=== PATIENT | female | born 2000 | race Caucasian/White ===

== ENCOUNTER 2018-02-12 11:30 | Outpatient (CLI) | payer MEDICAID ==
[2018-02-12] MEDS ORDERED: metroNIDAZOLE-NS PMX 500 MG in SALINE 1 100ML.BAG IVPB STA (12:22)
[2018-02-12] MEDS: LACTATED RINGERS 1,000 ML IV SCH ×2 (12:25→15:18)
[2018-02-12 12:39] VITALS: BP 139/83; PULSE 96; RESP 16; TEMP 98.3
[2018-02-12 12:46] LABS: Basophils % (A) 0 %; Eosinophils # (A) 0.1 k/uL (0-0.7); Eosinophils % (A) 1 %; HGB 11.1 gm/dL (11.4-16.0); Lymphocytes # (A) 0.6 k/uL (1.0-4.8); Lymphocytes % (A) 9 %; MCH 26.5 pg (25.0-35.0); MCHC 32.7 g/dL (31.0-37.0); MCV 81.1 fL (80.0-100.0); Mean Platelet Volume 7.9; Monocytes # (A) 0.3 k/uL (0-1.0); Monocytes % (A) 5 %; Neutrophils # (A) 5.5 k/uL (1.3-7.7); Neutrophils % (A) 85 %; Platelet Count 185 k/uL (150-450); RBC 4.19 m/uL (3.80-5.40); RDW 14.1 % (11.5-15.5); WBC 6.6 k/uL (4.0-11.0)
--- NOTE | 2018-02-12 14:59 | P.MSEPDOC ---
Presenting Problems - Arrival Data Date of Arrival on Unit: 02/12/18 Time of Arrival on Unit: 11:30 Mode of Transport: Ambulatory - Complaint OB-Reason for Admission/Chief Complaint: Acute Nausea/Vomiting, Dizziness, Other Comment: nausea, dizziness, diarrhea x2 weeks Medical History - Information : 1 Para: 0 Term: 0 : 0 Abortions: Spontaneous or Elective: 0 Number of Living Children: 0 - Gestational Age Gestational Age by ZIGGY (wks/days): 20 Weeks and 5 Days Review of Systems - Review of Systems Constitutional: Fatigue Breast: No problems ENT: No problems Cardiovascular: No problems Respiratory: No problems Gastrointestinal: Diarrhea Genitourinary: No problems Musculoskeletal: No problems Neurological: Dizziness Skin: No problems Comment: diarrhea x 2 weeks since taking Azythromycin, nausea, stomach pain, dizzy Vital Signs - Temperature Temperature: 98.3 F Temperature Source: Temporal Artery Scan - Pulse Right Brachial Pulse Rate: 96 Pulse Assessment Method: Automatic Cuff - Respirations Respiratory Rate: 16 Oxygen Delivery Method: Room Air O2 Sat by Pulse Oximetry: 99 - Blood Pressure Right Arm Blood Pressure: 139/83 Blood Pressure Mean: 101 Blood Pressure Source: Automatic Cuff Medical Screen Scoring (Pre) - Cervical Exam Dilation: Exam Deferred Effacement: Exam Deferred Membranes: Intact - Uterine Contractions Frequency: N/A Duration: N/A Intensity: N/A - Maternal Vital Signs Maternal Temperature: N/A Maternal Blood Pressure: N/A Signs of Preeclampsia: N/A - Pain Assessment Pain Location and Character: Abdomen Pain Scale Used: Numeric (1 - 10) Pain Intensity: 8 Pain Description: *Acute, Aching Pain Frequency: Intermittent Pain Duration: 10 Pain Duration Units: Days Pain Behavior: None Exhibited Pain Aggravating Factors: None Non-Pharmacological Interventions: Darkened Room, Reduce Environmental Stimuli - Assessment Baseline FHR: 146 Heart Rate - NICHD Category: Category I (Normal) = 0 Position: N/A Station: N/A - Total Score Total Score (Pre): 0 - Level of Risk Level of Risk: Low (0-5) Physician Notification (Pre) - Physician Notified Physician Notified Date: 02/12/18 Physician Notified Time: 12:01 Spoke With: August New Order Received: Yes - Notification Comment Comment: cbc, IV fluids, Flagyl IV I agree with the RN Medical Screening Exam: Yes Risk & Benefit of care provided described in d/c instruction: Yes Diagnosis: CHOLERA DUE TO VIBRIO CHOLERAE 01, BIOVAR CHOLERAE
== END 2018-02-12 13:57 | disposition home or self-care (01) ==
LOC: FBPOP 11:30
PROVIDERS: ATTEND Obstetrics & Gynecology Obstetrics
DX: O98.812 Other maternal infectious and parasitic diseases complicating pregnancy, second trimester (principal); A00.0 Cholera due to Vibrio cholerae 01, biovar cholerae; Z3A.20 20 weeks gestation of pregnancy
CPT/HCPCS: 85025; 96361; 96365; 99214

== ENCOUNTER 2018-03-06 20:01 | Observation (INO) | payer MEDICAID, OTHER ==
[2018-03-06] MEDS ORDERED: LABETALOL 200 MG TAB PO STA (20:37)
[2018-03-06 20:50] LABS: Appearance,Urine Clear (Clear); Bilirubin,Urine Negative (Negative); Blood,Urine Negative (Negative); Color,Urine Yellow; Glucose,Urine (UA) Negative (Negative); Ketones,Urine Negative (Negative); Leukocyte Esterase,Urine Negative (Negative); Nitrite,Urine Negative (Negative); Protein,Urine Negative (Negative); Specific Gravity,Urine 1.016 (1.001-1.035); Urobilinogen,Urine <2.0 mg/dL (<2.0)
[2018-03-06 21:19] LABS: Basophils % (A) 0 %; Eosinophils # (A) 0.1 k/uL (0-0.7); Eosinophils % (A) 1 %; HCT 33.8 % (34.0-46.0); HGB 11.1 gm/dL (11.4-16.0); Lymphocytes # (A) 1.3 k/uL (1.0-4.8); Lymphocytes % (A) 17 %; MCH 26.8 pg (25.0-35.0); MCHC 32.7 g/dL (31.0-37.0); MCV 82.2 fL (80.0-100.0); Mean Platelet Volume 7.7; Monocytes # (A) 0.4 k/uL (0-1.0); Monocytes % (A) 6 %; Neutrophils # (A) 5.6 k/uL (1.3-7.7); Neutrophils % (A) 75 %; Platelet Count 201 k/uL (150-450); RBC 4.12 m/uL (3.80-5.40); WBC 7.5 k/uL (4.0-11.0)
[2018-03-06 21:30] LABS: ALT 21 U/L (9-52); AST 19 U/L (14-36); Blood Urea Nitrogen 11 mg/dL (7-17); LDH 344 U/L (313-618)
[2018-03-06 21:52] LABS: Amphetamine Screen,Urine Not Detected (NotDetected); Barbiturate Screen,Urine Not Detected (NotDetected); Benzodiazepines Screen,Urine Not Detected (NotDetected); Cocaine Screen,Urine Not Detected (NotDetected); Methadone Screen, Urine Not Detected (NotDetected); Opiate Screen,Urine Not Detected (NotDetected); Oxycodone Screen, Urine Not Detected (NotDetected); Phencyclidine Screen,Urine Not Detected (NotDetected); Tricyclic Antidepressant,Urine Not Detected (NotDetected); Urn Cannabinoid Scrn Detected (NotDetected)
[2018-03-06] MEDS ORDERED: ACETAMINOPHEN TAB 325 MG TAB PO PRN (22:11)
[2018-03-06] MEDS ORDERED: hydrALAZINE HCL 20 MG/ML 1 ML VIAL IVP PRN (22:30)
[2018-03-07 00:05] VITALS: BMI 22.1
[2018-03-07] MEDS: LABETALOL 200 MG TAB PO SCH ×3 (06:36→20:53)
[2018-03-07 08:22] LABS: ALT 17 U/L (9-52); AST 14 U/L (14-36); Blood Urea Nitrogen 10 mg/dL (7-17); LDH 252 U/L (313-618); Uric Acid 2.2 mg/dL (3.7-7.4)
[2018-03-07 08:33] LABS: Basophils % (A) 0 %; Eosinophils # (A) 0.1 k/uL (0-0.7); Eosinophils % (A) 2 %; HCT 28.7 % (34.0-46.0); Lymphocytes # (A) 1.5 k/uL (1.0-4.8); Lymphocytes % (A) 25 %; MCH 26.9 pg (25.0-35.0); MCV 81.7 fL (80.0-100.0); Mean Platelet Volume 7.2; Monocytes # (A) 0.3 k/uL (0-1.0); Monocytes % (A) 6 %; Neutrophils % (A) 66 %; Platelet Count 201 k/uL (150-450); RBC 3.52 m/uL (3.80-5.40); RDW 13.9 % (11.5-15.5)
[2018-03-07 08:50] LABS: HGB 9.5 gm/dL (11.4-16.0)
--- NOTE | 2018-03-07 09:51 | P.HPOB ---
History of Present Illness H&P Date: 03/07/18 Chief Complaint: Abdominal cramping This is a 17-year-old 1 young woman who is approximately 23 weeks gestation. She presented to labor and delivery triage with vague complaints of abdominal cramping. She was ruled out for labor however was noted to have significantly elevated blood pressures in the 170s over 80s. She had no prior history of hypertension and was therefore admitted for further blood pressure monitoring and assessment. She denies vaginal bleeding, abdominal pain, leakage of fluids, headaches, visual changes, heartburn. She does have good movement. Her obstetric history is significant for marijuana use earlier in the however no other drug or alcohol history. She does note that her blood pressures were somewhat elevated on her last 2 visits in the office but had never been as high as they are upon presentation. Review of Systems Constitutional: Denies chills, Denies chronic headaches, Denies fatigue, Denies fever Cardiovascular: Denies chest pain, Denies rapid heart beat, Denies shortness of breath Respiratory: Denies cough, Denies dyspnea Gastrointestinal: Denies abdominal pain, Denies BRBPR, Denies change in bowel habits, Denies diarrhea Genitourinary: Denies abnormal vaginal bleeding, Denies dysuria, Denies vaginal discharge Musculoskeletal: Denies low back pain Integumentary: Denies rash Neurological: Denies headaches, Denies visual changes Psychiatric: Denies confusion Hematologic/Lymphatic: Denies easy bleeding, Denies easy bruising Past Medical History Past Medical History: Asthma History of Any Multi-Drug Resistant Organisms: None Reported Past Surgical History: No Surgical Hx Reported, Tonsillectomy Past Anesthesia/Blood Transfusion Reactions: No Reported Reaction Past Psychological History: ADD/ADHD, Anxiety Smoking Status: Never smoker Past Alcohol Use History: None Reported Past Drug Use History: Marijuana - Past Family History Father Family Medical History: No Reported History Medications and Allergies Home Medications Medication Instructions Recorded Confirmed Type Albuterol Sulfate [Proair Hfa] 2 puff INHALATION RT-Q6H PRN 01/29/15 03/06/18 History Pnv No.95/Ferrous Fum/Folic AC 1 tab PO HS 02/12/18 03/06/18 History [ Multivitamin Tablet] Allergies Allergy/AdvReac Type Severity Reaction Status Date / Time No Known Allergies Allergy Verified 03/06/18 20:04 Exam - Vital Signs Vital signs: Vital Signs Temp Pulse Resp BP 03/06/18 20:04 98.2 F 101 H 16 179/74 Intake and Output 03/06/18 03/07/18 03/07/18 22:59 06:59 14:59 Intake Total 300 Balance 300 Intake: Oral 300 Other: # Voids 2 Weight 58.513 kg Upon admission this is a pleasant, young, visibly gravid female. HEENT exam is unremarkable. The lungs are clear and her breathing is unlabored. Heart is a regular rate and rhythm. Abdomen is gravid, soft and nontender. Cervix is closed, thick and high. She has no lower extremity swelling and has 2+ DTRs. Results Result Diagrams: 03/07/18 07:39 03/07/18 07:39 Abnormal Lab Results - Last 24 Hours (Table) 03/06/18 03/06/18 03/06/18 Range/Units 20:44 21:09 21:09 RBC (3.80-5.40) m/uL Hgb 11.1 L (11.4-16.0) gm/dL Hct 33.8 L (34.0-46.0) % Uric Acid 2.0 L (3.7-7.4) mg/dL Lactate Dehydrogenase (313-618) U/L U Marijuana (THC) Screen Detected H (NotDetected) 03/07/18 03/07/18 Range/Units 07:39 07:39 RBC 3.52 L (3.80-5.40) m/uL Hgb 9.5 L D (11.4-16.0) gm/dL Hct 28.7 L (34.0-46.0) % Uric Acid 2.2 L (3.7-7.4) mg/dL Lactate Dehydrogenase 252 L (313-618) U/L U Marijuana (THC) Screen (NotDetected) Assessment and Plan (1) 23 weeks gestation of Current Visit: Yes Status: Acute Code(s): Z3A.23 - 23 WEEKS GESTATION OF SNOMED Code(s): 50714805 (2) Hypertension affecting in second trimester Narrative/Plan: Initial laboratory data was within normal limits with no evidence of preeclampsia by lab values. She did receive an initial dose of 200 mg of labetalol and her blood pressures have remained much slower since that time. She has no other clinical signs of developing preeclampsia. Her drug screen was positive for marijuana only. At this time we will continue hospital observation and serial blood pressures until her 24-hour urine protein is completed. If that is normal she will likely be discharged with close follow- up in the outpatient setting. Current Visit: Yes Status: Acute Code(s): O16.2 - UNSPECIFIED MATERNAL HYPERTENSION, SECOND TRIMESTER SNOMED Code(s): 958388878
[2018-03-07 13:21] VITALS: RESP 20
[2018-03-07 14:17] VITALS: TEMP 97.9
[2018-03-07 18:44] VITALS: BP 107/53; PULSE 83
[2018-03-07 21:38] LABS: Collection Time,Urine 24 hrs; Total Volume 24 Hour,Urine 1575 mls (800-1800)
[2018-03-07 22:27] LABS: Total Protein 24 Hour,Urine 158 mg/24hr (42.0-225.0)
== END 2018-03-07 23:30 | disposition home or self-care (01) ==
LOC: FBPOP 20:01 → 4FBP 22:06
PROVIDERS: ADMIT Obstetrics & Gynecology; ATTEND Obstetrics & Gynecology Obstetrics
DX: O16.2 Unspecified maternal hypertension, second trimester (principal); O99.342 Other mental disorders complicating pregnancy, second trimester; F12.90 Cannabis use, unspecified, uncomplicated; F90.9 Attention-deficit hyperactivity disorder, unspecified type; F41.9 Anxiety disorder, unspecified; O99.512 Diseases of the respiratory system complicating pregnancy, second trimester; J45.909 Unspecified asthma, uncomplicated; Z3A.23 23 weeks gestation of pregnancy
CPT/HCPCS: 81050; 82565 ×2; 83615 ×2; 84450 ×2; 84460 ×2; 84520 ×2; 84550 ×2; 85025 ×2; 81003; 84156; 80306; G0463; G0378 ×2; 99215

== ENCOUNTER 2018-06-18 16:03 | Inpatient (IN) | payer OTHER ==
[2018-06-18 16:58] LABS: Basophils % (A) 0 %; Eosinophils # (A) 0.1 k/uL (0-0.7); Eosinophils % (A) 1 %; HCT 35.4 % (34.0-46.0); HGB 11.7 gm/dL (11.4-16.0); Lymphocytes # (A) 1.2 k/uL (1.0-4.8); Lymphocytes % (A) 16 %; MCH 26.8 pg (25.0-35.0); MCV 81.2 fL (80.0-100.0); Mean Platelet Volume 8.7; Monocytes # (A) 0.4 k/uL (0-1.0); Monocytes % (A) 5 %; Neutrophils # (A) 6.1 k/uL (1.3-7.7); Neutrophils % (A) 77 %; Platelet Count 184 k/uL (150-450); RBC 4.37 m/uL (3.80-5.40); RDW 14.6 % (11.5-15.5); WBC 7.9 k/uL (4.0-11.0)
[2018-06-18 17:00] LABS: ALT 22 U/L (9-52); AST 20 U/L (14-36); Blood Urea Nitrogen 9 mg/dL (7-17); LDH 456 U/L (313-618); Uric Acid 2.9 mg/dL (3.7-7.4)
[2018-06-18] MEDS ORDERED: DINOPROSTONE 10 MG INSERT.ER VAGINAL ONE (17:06)
[2018-06-18] MEDS ORDERED: BUTORPHANOL 1 MG/ML 1 ML VIAL IV PRN ×2 (17:06→23:33)
[2018-06-18] MEDS ORDERED: LACTATED RINGERS 1,000 ML IV SCH (17:15)
[2018-06-18] MEDS ORDERED: TERBUTALINE 1 MG/ML VIAL SQ PRN (17:25)
[2018-06-18] MEDS ORDERED: LIDOCAINE 1% (PF) 10 MG/ML (30 ML SDV) SQ PRN (17:25)
[2018-06-18] MEDS ORDERED: OXYTOCIN 10 UNIT/ML 1 ML VIAL IM PRN (17:25)
[2018-06-18] MEDS ORDERED: CARBOPROST TROMETHAMINE 250 MCG/ML 1 ML AMP IM PRN (17:25)
[2018-06-18] MEDS ORDERED: METHYLERGONOVINE 0.2 MG/ML 1 ML AMP IM PRN (17:25)
[2018-06-18] MEDS: OXYTOCIN 20 UNITS/1000 ML NS 1,000 ML IV SCH (17:48)
[2018-06-18] MEDS: LACTATED RINGERS 1,000 ML IV SCH (17:48)
--- NOTE | 2018-06-18 19:23 | P.HPOB ---
History of Present Illness H&P Date: 06/18/18 Chief Complaint: IUP at 38 and 5, preeclampsia This is a pleasant 17-year-old 1 para 0 at 38-5/7 weeks with an estimated due date of 810. Patient was seen today in the office for routine visit blood pressure noted to be 150/90 recheck 148/90. Patient was sent to the hospital for further monitoring her blood pressures were noted to be significantly elevated 160/100. Patient was then admitted to labor and delivery for preeclampsia. On blood work blood type noted to be A+, rubella immune, hepatitis surface antigen negative, HIV negative, RPR nonreactive, GBS negative. Denies signs of preeclampsia she denies headache, visual changes, right upper quadrant pain or increased swelling. Review of Systems Constitutional: Reports fatigue, Denies chills, Denies fever Ears, nose, mouth and throat: Denies headache Cardiovascular: Denies chest pain, Denies edema Respiratory: Denies dyspnea Gastrointestinal: Denies constipation, Denies diarrhea Genitourinary: Reports Past Medical History Past Medical History: Asthma History of Any Multi-Drug Resistant Organisms: None Reported Past Surgical History: No Surgical Hx Reported, Tonsillectomy Past Anesthesia/Blood Transfusion Reactions: No Reported Reaction Past Psychological History: ADD/ADHD, Anxiety Smoking Status: Never smoker Past Alcohol Use History: None Reported Past Drug Use History: Marijuana - Past Family History Father Family Medical History: No Reported History Medications and Allergies Home Medications Medication Instructions Recorded Confirmed Type Albuterol Sulfate [Proair Hfa] 2 puff INHALATION RT-Q6H PRN 01/29/15 06/18/18 History Pnv No.95/Ferrous Fum/Folic AC 1 tab PO HS 02/12/18 06/18/18 History [ Multivitamin Tablet] Allergies Allergy/AdvReac Type Severity Reaction Status Date / Time No Known Allergies Allergy Verified 06/18/18 16:17 Exam Osteopathic Statement: *. No significant issues noted on an osteopathic structural exam other than those noted in the History and Physical/Consult. Intake and Output 06/18/18 06/18/18 06/18/18 06:59 14:59 22:59 Other: Weight 68.039 kg Results Result Diagrams: 06/18/18 16:37 06/18/18 16:37 Abnormal Lab Results - Last 24 Hours (Table) 06/18/18 Range/Units 16:37 Uric Acid 2.9 L (3.7-7.4) mg/dL Assessment and Plan (1) Term Current Visit: Yes Status: Acute Code(s): Z34.80 - ENCOUNTER FOR SUPRVSN OF NORMAL , UNSP TRIMESTER SNOMED Code(s): 51174953 (2) Preeclampsia Current Visit: Yes Status: Acute Code(s): O14.90 - UNSPECIFIED PRE-ECLAMPSIA , UNSPECIFIED TRIMESTER SNOMED Code(s): 886007016 (3) Depression affecting in third trimester, antepartum Current Visit: Yes Status: Acute Code(s): O99.343 - OTH MENTAL DISORDERS COMPLICATING , THIRD TRIMESTER; F32.9 - MAJOR DEPRESSIVE DISORDER, SINGLE EPISODE, UNSPECIFIED SNOMED Code(s): 76423711 Plan: We'll admit to labor and delivery for Pitocin induction of labor. Amniotomy is performed on admission and clear fluid was obtained. Plan is discussed with the patient and all questions are answered. will monitor BP closely, HELLP labs on exam are neg.
[2018-06-18 20:28] VITALS: RESP 16; BMI 26.5
[2018-06-19] MEDS: LACTATED RINGERS 1,000 ML IV SCH ×3 (00:50→22:43)
[2018-06-19] MEDS ORDERED: ROPIVACAINE 100 MG, fentaNYL (PF) 200 MCG in SODIUM CHLORIDE 0.9% 76 ML EPIDURAL ONE (01:45)
[2018-06-19] MEDS ORDERED: LANOLIN CREAM 5 GM TUBE TOPICAL PRN (04:17)
[2018-06-19] MEDS ORDERED: diphenhydrAMINE 50 MG CAP PO PRN (04:17)
[2018-06-19] MEDS ORDERED: BENZOCAINE/MENTHOL SPRAY 1 GM/SPRAY AEROSOL TOPICAL PRN (04:17)
[2018-06-19] MEDS ORDERED: ZOLPIDEM 5 MG TAB PO PRN (04:17)
[2018-06-19] MEDS ORDERED: SIMETHICONE 80 MG CHEWABLE PO PRN (04:17)
[2018-06-19] MEDS ORDERED: HYDROCORTISONE 2.5% RECTAL CREAM 30 GM TUBE RECTAL PRN (04:17)
[2018-06-19] MEDS ORDERED: ACETAMINOPHEN TAB 325 MG TAB PO PRN (04:17)
[2018-06-19] MEDS ORDERED: diphenhydrAMINE 25 MG CAP PO PRN (04:17)
[2018-06-19] MEDS ORDERED: WITCH HAZEL 1 EACH MED..PAD TOPICAL PRN (04:17)
[2018-06-19] MEDS ORDERED: diphenhydrAMINE 50 MG/ML 1 ML VIAL IVP PRN ×2 (04:17)
[2018-06-19] MEDS: OXYTOCIN 20 UNITS/1000 ML NS 1,000 ML IV SCH (04:19)
--- NOTE | 2018-06-19 04:21 | P.PROBDLV ---
Vaginal Delivery Note - . Vaginal Delivery Note: This is a 17-year-old 1 para 0 at 38-5/7 weeks that was seen in the office today with elevated pressures 150/90, recheck 148/90. Patient was sent to the hospital for further monitoring. Blood pressures noted to be 160s over low 100 the decision was made to proceed with induction of labor secondary to preeclampsia without severe features. Pitocin induction of labor was begun, amniotomy was performed and clear fluid was obtained Patient did receive Stadol 2 during her labor and eventually received an epidural from anesthesia. She progressed through labor eventually becoming complete and started pushing and had a normal spontaneous vaginal delivery of a viable male infant at 346, weight of 7 lbs. 8 oz., Apgars of 8 and 9 at one and 5 minutes respectively. Spontaneous cry at was noted Afterwards the umbilical cord was doubly clamped and cut and the placenta was delivered spontaneously intact with a three -vessel cord being noted. On inspection the patient's vaginal vault a second degree midline laceration was noted this was repaired in the usual fashion afterwards hemostasis was appreciated. Further inspection the patient's vaginal vault revealed no further lacerations. The uterus was noted to be firm and below the umbilicus at this time. Next Estimated blood loss 400 mL Patient and tolerated delivery well and are resting comfortably
[2018-06-19] MEDS ORDERED: OXYTOCIN 20 UNITS/1000 ML NS 1,000 ML IV SCH (04:30)
[2018-06-19] MEDS: IBUPROFEN 600 MG TAB PO PRN ×2 (06:29→20:22)
[2018-06-19] MEDS: SENNOSIDES-DOCUSATE SODIUM 1 EACH TAB PO SCH ×2 (07:58→20:23)
--- NOTE | 2018-06-19 13:55 | P.PNOBGVD ---
Subjective - Subjective Principal diagnosis: PPD 1 , preeclampsia Interval history: Patient is doing well . She denies headache abdominal pain or visual changes. Blood pressures are 140s/80s to 90s. Other than fatigue she states she is doing well. She is breast-feeding with some difficulty. She denies nausea or vomiting is tolerating regular diet. She states her pain is well- controlled. Patient reports: Reports appetite normal, Reports voiding normally, Reports pain well controlled : doing well Objective - Latest Vital Signs Latest vital signs: Vital Signs Temp Pulse Resp BP 06/19/18 11:51 98.8 F 95 16 134/86 06/19/18 07:51 99.2 F 112 H 16 142/79 06/19/18 05:50 98 F 121 H 16 158/74 06/19/18 05:20 120 H 16 152/73 06/19/18 04:50 98.6 F 127 H 16 146/71 06/19/18 04:35 122 H 16 152/72 06/19/18 04:20 99.1 F 118 H 16 142/73 06/19/18 04:05 99.1 F 115 H 16 150/82 06/19/18 03:50 99.8 F H 126 H 16 146/75 06/18/18 17:06 97.8 F 108 H 16 167/89 Intake and Output 06/18/18 06/19/18 06/19/18 22:59 06:59 14:59 Intake Total 31.55 Output Total 500 Balance -468.45 Intake: Intake, IV Titration 31.55 Amount Oxytocin 20 Units/1000 ml 31.55 Ns 1,000 ml @ 1 MILLIUNIT/MIN 3 mls/hr IV .Q24H AMARJIT Rx#:[id number] Output: Urine 100 Estimated Blood Loss 400 Other: # Voids 0 0 Weight 68.039 kg - Exam Extremities: Present: normal Abdomen: Present: normal appearance, soft Uterus: Present: firm - Labs Labs: Abnormal Lab Results - Last 24 Hours (Table) 06/18/18 Range/Units 16:37 Uric Acid 2.9 L (3.7-7.4) mg/dL Assessment and Plan (1) Term Current Visit: Yes Status: Acute Code(s): Z34.80 - ENCOUNTER FOR SUPRVSN OF NORMAL , UNSP TRIMESTER SNOMED Code(s): 51672101 (2) Preeclampsia Current Visit: Yes Status: Acute Code(s): O14.90 - UNSPECIFIED PRE-ECLAMPSIA , UNSPECIFIED TRIMESTER SNOMED Code(s): 466960857 (3) Depression affecting in third trimester, antepartum Current Visit: Yes Status: Acute Code(s): O99.343 - OTH MENTAL DISORDERS COMPLICATING , THIRD TRIMESTER; F32.9 - MAJOR DEPRESSIVE DISORDER, SINGLE EPISODE, UNSPECIFIED SNOMED Code(s): 28530462 (4) Status post vaginal delivery Current Visit: Yes Status: Acute Code(s): XCH9813 - SNOMED Code(s): 165523604 Plan: Will continue with routine care.
[2018-06-20 04:52] VITALS: BP 144/84
[2018-06-20] MEDS: IBUPROFEN 600 MG TAB PO PRN ×2 (05:23→11:56)
[2018-06-20 07:40] LABS: Basophils % (A) 0 %; Eosinophils # (A) 0.1 k/uL (0-0.7); Eosinophils % (A) 1 %; HCT 25.9 % (34.0-46.0); Lymphocytes # (A) 1.7 k/uL (1.0-4.8); Lymphocytes % (A) 18 %; MCH 27.6 pg (25.0-35.0); MCHC 33.3 g/dL (31.0-37.0); MCV 82.8 fL (80.0-100.0); Mean Platelet Volume 8.4; Monocytes # (A) 0.5 k/uL (0-1.0); Monocytes % (A) 5 %; Neutrophils # (A) 6.8 k/uL (1.3-7.7); Neutrophils % (A) 74 %; Platelet Count 176 k/uL (150-450); RBC 3.12 m/uL (3.80-5.40); RDW 14.8 % (11.5-15.5); WBC 9.3 k/uL (4.0-11.0)
[2018-06-20 07:43] LABS: HGB 8.6 gm/dL (11.4-16.0)
[2018-06-20 08:12] VITALS: PULSE 93; TEMP 97.9
[2018-06-20] MEDS: SENNOSIDES-DOCUSATE SODIUM 1 EACH TAB PO SCH (08:14)
--- NOTE | 2018-06-20 10:27 | P.DS ---
Providers Date of admission: 06/18/18 16:38 Expected date of discharge: 06/20/18 Attending physician: Laura Koch Primary care physician: Stated None - Discharge Diagnosis(es) (1) Preeclampsia Current Visit: Yes Status: Acute (2) Status post vaginal delivery Current Visit: Yes Status: Acute (3) Term Current Visit: Yes Status: Acute Hospital Course: The patient is a 17-year-old 1 para 0 admitted at 38-5/7 weeks by good dating parameters. She is admitted after having significant elevated blood pressures in the office prompting her to be sent to the hospital where blood pressures remained fairly elevated at approximately 160/100. She is admitted for delivery then with the diagnosis of preeclampsia. Prior to the onset of the preeclampsia, her had been essentially uncomplicated and group B strep status is negative. On labor and delivery, she had Pitocin augmentation started followed by artificial rupture of membranes. She had an epidural catheter placed for analgesia and ultimately progressed to complete where after she pushed to a normal spontaneous vaginal delivery of a viable 7 lbs. 8 oz. baby boy with Apgars of 8 at 1 minute and 9 at 5 minutes. Her course was unremarkable with vital signs remaining stable and she was afebrile throughout. Blood pressures were within normal limits at the time of discharge. She was deemed stable for discharge on day #2 was discharged home to follow-up in the office in 6 weeks routinely. Discharge instructions included calling for any significantly increased bleeding or foul- smelling lochia, significantly increased fever abdominal pain, perineal complaints, breast complaints, or anything else that concerned her. We did place him attention to signs and symptoms of elevated blood pressure. She understood all of her instructions and agrees to follow up as noted above. Discharge medications included continued vitamins as she has opted to breast-feed. She otherwise was to use [id number] analgesic pain medications as needed. Maternal blood type is A+ and rubella status is immune. Procedures: #1. Pitocin induction #2. Artificial rupture of membranes #3. Epidural analgesia #4. Normal spontaneous vaginal delivery #5. Repair of perineal laceration Patient Condition at Discharge: Stable Plan - Discharge Summary New Discharge Prescriptions: No Action Albuterol Sulfate [Proair Hfa] 2 puff INHALATION RT-Q6H PRN PRN Reason: Wheezing Pnv No.95/Ferrous Fum/Folic AC [ Multivitamin Tablet] 1 tab PO HS Sertraline [Zoloft] 50 mg PO DAILY Discharge Medication List Albuterol Sulfate [Proair Hfa] 2 puff INHALATION RT-Q6H PRN 01/29/15 [History] Pnv No.95/Ferrous Fum/Folic AC [ Multivitamin Tablet] 1 tab PO HS [History] Sertraline [Zoloft] 50 mg PO DAILY 06/18/18 [History] Follow up Appointment(s)/Referral(s): Laura Koch DO [Doctor of Osteopathic Medicine] - 6 Weeks Discharge Disposition: HOME SELF-CARE
== END 2018-06-20 12:52 | disposition home or self-care (01) | DRG 775 ==
LOC: FBPOP 16:03 → 4FBP 16:38
PROVIDERS: ADMIT Obstetrics & Gynecology Obstetrics; ATTEND Obstetrics & Gynecology Obstetrics
PROC: 10E0XZZ Delivery of Products of Conception, External Approach (ICD-10-PCS; principal; 2018-06-19)
PROC: 0KQM0ZZ Repair Perineum Muscle, Open Approach (ICD-10-PCS; 2018-06-19)
PROC: 3E033VJ Introduction of Other Hormone into Peripheral Vein, Percutaneous Approach (ICD-10-PCS; 2018-06-19)
PROC: 10907ZC Drainage of Amniotic Fluid, Therapeutic from Products of Conception, Via Natural or Artificial Opening (ICD-10-PCS; 2018-06-19)
PROC: 00HU33Z Insertion of Infusion Device into Spinal Canal, Percutaneous Approach (ICD-10-PCS; 2018-06-19)
PROC: 3E0R3BZ Introduction of Anesthetic Agent into Spinal Canal, Percutaneous Approach (ICD-10-PCS; 2018-06-19)
DX: O14.94 Unspecified pre-eclampsia, complicating childbirth (principal); Z37.0 Single live birth; O99.344 Other mental disorders complicating childbirth; O70.1 Second degree perineal laceration during delivery; F32.9 Major depressive disorder, single episode, unspecified; F41.9 Anxiety disorder, unspecified; O99.334 Smoking (tobacco) complicating childbirth; F17.200 Nicotine dependence, unspecified, uncomplicated; F90.9 Attention-deficit hyperactivity disorder, unspecified type; O99.52 Diseases of the respiratory system complicating childbirth; J45.909 Unspecified asthma, uncomplicated; Z3A.38 38 weeks gestation of pregnancy; Z79.899 Other long term (current) drug therapy
CPT/HCPCS: 59025; 82565; 83615; 84450; 84460; 84520; 84550; 85025; 99215

== ENCOUNTER 2021-03-20 08:20 | Day surgery (SDC) | payer OTHER ==
[~2021-03-20 08:20] MED LIST: LACTATED RINGERS 1,000 ML IV SCH; LIDOCAINE 1% (10MG/ML) FOR IV START INTRADERMA PRN
[2021-03-20 09:10] VITALS: TEMP 98.2
[2021-03-20] MEDS ORDERED: PROPOFOL 10 MG/ML 20 ML VIAL IV ONE (09:27)
[2021-03-20] MEDS ORDERED: MIDAZOLAM 2 MG/2 ML VIAL ONE (09:27)
--- NOTE | 2021-03-20 09:38 | P.PCN ---
Date of Procedure: 03/20/21 Procedure(s) Performed: BRIEF HISTORY: Patient is a 20-year-old, pleasant, white female scheduled for an upper endoscopy as a part of evaluation of periumbilical and upper abdominal pain for the last 1 year duration. She also has mild GERD and has been on omeprazole 20 mg daily. Celiac serologies were abnormal and hence scheduled for an upper endoscopy to evaluate further. PROCEDURE PERFORMED: Esophagogastroduodenoscopy with biopsy. PREOPERATIVE DIAGNOSIS: Epigastric pain/upper abdominal pain. IV sedation per anesthesia. PROCEDURE: After informed consent was obtained, the patient was brought into the endoscopy unit. IV sedation was administered by Anesthesia under continuous monitoring. Initially the Olympus GIF-140 video endoscope was inserted into the mouth. Esophagus intubated without any difficulty. It was gradually advanced into the stomach and duodenum and carefully examined. The bulb and the second part of the duodenum appeared normal. Multiple biopsies were done from the duodenum to rule out celiac disease. The scope at this time was withdrawn to the stomach, adequately insufflated with air, and upon careful examination, mucosa of the antrum had mild linear esophagitis which was biopsied. The body, cardia and the fundus appeared normal. The scope was then withdrawn into the esophagus. The GE junction was located at 39 cm from the incisors. The esophagus appeared normal. There were no erosions or ulcerations seen and the patient tolerated the procedure well. IMPRESSION: 1. Normal-appearing duodenum status post multiple biopsies to rule out celiac disease. 2. Mild antral gastritis. RECOMMENDATIONS: The findings of this examination were discussed with the p atient as well as a family. She was advised to follow with the biopsy results. She'll be seen in office in one to 2 weeks.
[2021-03-20] MEDS ORDERED: ONDANSETRON 4 MG/2 ML VIAL ONE (10:02)
[2021-03-20 10:18] VITALS: BP 118/73; PULSE 60; RESP 20
== END 2021-03-20 10:38 | disposition home or self-care (01) ==
LOC: ORWHC2ENDO 08:20
PROVIDERS: ATTEND Internal Medicine Gastroenterology
DX: K29.50 Unspecified chronic gastritis without bleeding (principal); K21.9 Gastro-esophageal reflux disease without esophagitis; Z79.899 Other long term (current) drug therapy
CPT/HCPCS: 81025; 88305; 43239; J2250; J2704

== ENCOUNTER → 2021-03-30 | Outpatient (CLI) | payer OTHER ==
--- NOTE | 2021-03-30 10:06 | US ---
EXAMINATION TYPE: US abdomen complete DATE OF EXAM: 03/30/2021 COMPARISON: NONE CLINICAL HISTORY: R10.9 ABDOMINAL PAIN. generalized abdomen pain EXAM MEASUREMENTS: Liver Length: 15.7 cm Gallbladder Wall: 0.2 cm CBD: 0.2 cm Spleen: 11.1 cm Right Kidney: 10.6 x 5.1 x 3.6 cm Left Kidney: 9.7 x 4.8 x 3.8 cm Pancreas: wnl Liver: wnl Gallbladder: wnl Evidence for sonographic Bernal's sign: neg CBD: wnl Spleen: wnl Right Kidney: Lateral upper pole cystic lesion = 0.6 x 0.6 x 0.6 cm. Medial anechoic lesion at hilu m = 0.9 x 0.7 cm. Left Kidney: lower pole cystic lesion with septation = 1.6 x 1.4 x 1.4 cm. Lower pole echogenic foc us adjacent to cystic lesion = 0.6 cm. Medial mid cystic lesion = 0.9 x 0.8 x 0.8 cm. Upper IVC: wnl Abd Aorta: No AAA visualized The liver is homogenous. The intrahepatic portion of the IVC and proximal abdominal aorta are within normal limits. There is no evidence of cholelithiasis. Common bile duct is unremarkable. The visu alized portions of the pancreas are homogenous. The spleen is unremarkable. No renal lesions are se en. IMPRESSION: Renal cystic changes noted.
== END | disposition home or self-care (01) ==
LOC: RADUSWWP 09:16
PROVIDERS: ATTEND Family Medicine
DX: N28.1 Cyst of kidney, acquired (principal)
CPT/HCPCS: 76700

== ENCOUNTER 2022-07-05 20:34 | Emergency (ER) | payer OTHER ==
[2022-07-05] MEDS ORDERED: KETOROLAC 15 MG/ML 1 ML VIAL IM STA (22:11)
--- NOTE | 2022-07-05 22:20 | XR ---
EXAMINATION TYPE: XR finger RT DATE OF EXAM: 07/05/2022 COMPARISON: NONE HISTORY: Laceration TECHNIQUE: 3 views FINDINGS: I see no fracture nor dislocation. Joint spaces are normal. No evidence of radiopaque forei gn body. IMPRESSION: Negative right index finger exam.
[2022-07-05] MEDS ORDERED: LIDOCAINE 1% INJ 10MG/ML (20 ML MDV) SQ ONE (22:27)
--- NOTE | 2022-07-05 23:15 | ED ---
Wound/Laceration HPI - General Chief Complaint: Wound/Laceration Stated Complaint: R hand lac Time Seen by Provider: 07/05/22 21:45 Source: patient Mode of arrival: ambulatory Limitations: no limitations - History of Present Illness Initial Comments: Patient is a 21-year-old female presents with laceration. Patient cut her right index finger on glass while doing dishes. Denies numbness and tingling. Reports tetanus is up-to-date. - Related Data Home Medications Medication Instructions Recorded Confirmed Albuterol Sulfate [Proair Hfa] 2 puff INHALATION BID 01/29/15 03/20/21 Dicyclomine [Bentyl] 20 mg PO TID PRN 03/15/21 03/20/21 Ergocalciferol (Vitamin D2) 1,250 mcg PO Q7D 03/15/21 03/20/21 [Vitamin D2 (50,000 Iu)] Iron 10 mg PO TID 03/15/21 03/15/21 Omeprazole 20 mg PO QAM 03/15/21 03/20/21 Allergies Allergy/AdvReac Type Severity Reaction Status Date / Time No Known Allergies Allergy Verified 07/05/22 21:21 Review of Systems ROS Statement: Those systems with pertinent positive or pertinent negative responses have been documented in the HPI. ROS Other: All systems not noted in ROS Statement are negative. Past Medical History Past Medical History: Asthma, GERD/Reflux Additional Past Medical History / Comment(s): "Born with a heart murmur. Have palpitations related to Asthma". History of Any Multi-Drug Resistant Organisms: None Reported Past Surgical History: Tonsillectomy Additional Past Surgical History / Comment(s): [place] teeth. Past Anesthesia/Blood Transfusion Reactions: No Reported Reaction, Motion Sickness Past Psychological History: ADD/ADHD, Anxiety, Depression Smoking Status: Vaper Past Alcohol Use History: None Reported Past Drug Use History: Marijuana - Past Family History Father Family Medical History: No Reported History General Exam Limitations: no limitations General appearance: alert Head exam: Present: atraumatic, normocephalic, normal inspection Respiratory exam: Present: normal lung sounds bilaterally. Absent: respiratory distress, wheezes, rales, rhonchi, stridor Cardiovascular Exam: Present: regular rate, normal rhythm, normal heart sounds. Absent: systolic murmur, diastolic murmur, rubs, gallop, clicks Extremities exam: Present: other (2 cm laceration over middle anterior index finger. Neurovascularly intact. Full range of motion.) Neurological exam: Present: alert, oriented X3, CN II-XII intact Psychiatric exam: Present: normal affect, normal mood Skin exam: Present: warm, dry, intact, normal color. Absent: rash Course Vital Signs 07/05/22 21:22 Pulse Rate 98 Respiratory 26 H Rate Blood Pressure 124/85 O2 Sat by Pulse 100 Oximetry Medical Decision Making - Medical Decision Making This is a 21-year-old who presents with laceration. Thorough history and examination were performed. There is 2 cm laceration over middle anterior index finger. Neurovascularly intact. Full range of motion. X-ray negative for fracture or foreign body. Laceration irrigated and well approximated with 3 sutures. Wound care instruction discussed in detail. Dr. De Los Santos is my attending. Disposition Clinical Impression: Laceration Disposition: HOME SELF-CARE Condition: Good Instructions (If sedation given, give patient instructions): Care For Your Stitches (DC), Laceration (ED) Additional Instructions: Leave wound uncovered. Keep wound clean and dry. Wash with a mild soap. Take Tylenol or anti-inflammatories such as Motrin for pain. Follow-up with primary care provider in 1-2 days. Return for suture removal in 7-10 days. Report back to the emergency department if you experience new, concerning, or worsening symptoms. Is patient prescribed a controlled substance at d/c from ED?: No Referrals: Benji Lamas DO [Primary Care Provider] - 1-2 days Time of Disposition: 23:15
[2022-07-06 00:04] VITALS: BP 137/84; PULSE 55; RESP 16
== END 2022-07-05 23:50 | disposition home or self-care (01) ==
LOC: EC 20:34
DX: S61.210A Laceration without foreign body of right index finger without damage to nail, initial encounter (principal); J45.909 Unspecified asthma, uncomplicated; K21.9 Gastro-esophageal reflux disease without esophagitis; F41.9 Anxiety disorder, unspecified; F32.A Depression, unspecified; F17.290 Nicotine dependence, other tobacco product, uncomplicated; F12.90 Cannabis use, unspecified, uncomplicated; W25.XXXA Contact with sharp glass, initial encounter; Y93.G1 Activity, food preparation and clean up
CPT/HCPCS: 73140; 99283; 12001; 96372; J2001; J1885

== ENCOUNTER → 2023-04-18 | Outpatient (CLI) | payer OTHER ==
[2023-04-18 13:51] VITALS: BP 119/71; PULSE 66; RESP 16; TEMP 98.4
--- NOTE | 2023-04-18 14:28 | P.GSHP ---
History of Present Illness H&P Date: 04/18/23 Chief Complaint: abnormal bilateral breast ultrasound Nallely is a 22 year old white female seen in consultation for Dr. Lamas regarding abnormal breast ultrasound. She is able to feel a lump in her right breast for about 8 years. It has not changed in size. She has not had any biopsies. Bilateral breast ultrasound performed on 3to23 which revealed in the right breast 3 lesions felt to be most likely fibroadenomas and in the left breast at the 9 o'clock position one lesion felt to be a fibroadenoma. This was felt to be BIRADS 3 and repeat bilateral ultrasound in 6 months was recommended. She is not complaining of any trauma or infection in her breast. She does not complain of any nipple discharge or skin changes. Her menstral periods are normal. Caffiene: occasional nicotine: vapes daily chocolate: daily BCP: used them at 15 for < 1 year Family History: maternal grandmother: multiple myloma paternal aunt: ovarian cancer maternal grandfather: kidney cancer Hormonal History: menarche: 11 age at : 17 breast fed: yes periods regular, started yesterday Surgical History: tonsil and adenoids all 4 of wisdom teeth removed Medical History: asthma anxiety disorder post traumatic stress disorder chronic depression gastritis She'll history: Nicotine: Vague [place] Alcohol: Negative Marijuana: Daily, drugs otherwise : none - Constitutional Constitutional: Denies chills, Denies fever - EENT Eyes: denies blurred vision, denies pain Ears: deny: decreased hearing, tinnitus Ears, nose, mouth and throat: Denies headache, Denies sore throat - Breasts Breasts: bilateral: as per HPI - Cardiovascular Cardiovascular: Denies chest pain, Denies shortness of breath - Respiratory Comment: asthma Respiratory: Denies cough, Denies 7 - Gastrointestinal Gastrointestinal: Reports as per HPI - Genitourinary (Female) Genitourinary: Denies dysuria, Denies hematuria - Menstruation Menstruation: Reports period normal - Musculoskeletal Musculoskeletal: Denies myalgias - Integumentary Integumentary: Reports rash - Neurological Neurological: Denies numbness, Denies weakness - Psychiatric Psychiatric: Reports as per HPI - Endocrine Endocrine: Reports fatigue - Hematologic/Lymphatic Comment: none - Allergic/Immunologic Allergic/Immunologic: Reports as per HPI, Reports seasonal allergies Past Medical History Past Medical History: Asthma, GERD/Reflux Additional Past Medical History / Comment(s): "Born with a heart murmur. Have palpitations related to Asthma". History of Any Multi-Drug Resistant Organisms: None Reported Past Surgical History: Tonsillectomy Additional Past Surgical History / Comment(s): [place] teeth. Past Anesthesia/Blood Transfusion Reactions: No Reported Reaction, Motion Sickness Past Psychological History: ADD/ADHD, Anxiety, Depression Smoking Status: Vaper Past Alcohol Use History: None Reported Past Drug Use History: Marijuana Additional Drug Use History / Comment(s): UsesMarijuana three times daily. Aware no use 24 hrs prior to procedure. - Past Family History Father Family Medical History: No Reported History Medications and Allergies Home Medications Medication Instructions Recorded Confirmed Type Albuterol Sulfate [Proair Hfa] 2 puff INHALATION BID 01/29/15 04/18/23 History Omeprazole 20 mg PO QAM 03/15/21 04/18/23 History busPIRone HCL [Buspar] 7.5 mg PO BID 04/18/23 04/18/23 History Allergies Allergy/AdvReac Type Severity Reaction Status Date / Time No Known Allergies Allergy Verified 04/18/23 13:51 Surgical - Exam Vital Signs Temp Pulse Resp BP Pulse Ox 98.4 F 66 16 119/71 100 04/18/23 13:48 04/18/23 13:48 04/18/23 13:48 04/18/23 13:48 04/18/23 13:48 - General no distress - Eyes normal ocular movement - Neck trachea midline - Respiratory normal respiratory effort, clear to auscultation - Cardiovascular Rhythm: regular Heart Sounds: normal: S1, S2 - Abdomen Abdomen: soft, non tender, no guarding, no rigid, no rebound - Integumentary multiple tattoos - Neurologic no disoriented, no combative - Musculoskeletal normal gait - Psychiatric oriented to time, oriented to person, oriented to place, speech is normal, memory intact Breast exam: BRA: 34A Inspection: bilateral grade 1 ptosis bilateral nipple piercing palpation: right breast: multi positional exam nodule at approximately 3 o'clock position was approximately 1 cm in size consistent with most likely fibroadenoma Right axilla: No adenopathy of concern Left breast: Multi-positional exam no dominant masses or nodules of concern Left axilla: No adenopathy of concern Results Ultrasound results reviewed Assessment and Plan Assessment: Impression: Palpable mass right breast consistent most likely with fibroadenoma seen on ultrasound, 3 masses seen on ultrasound all appear to be consistent with fibroadenomas, left breast 1 lesions seen and ultrasound felt to be consistent with fibroadenoma Plan: The lesion in the right breast is palpable and uncomfortable the patient would like to have a diagnosis would recommend ultrasound-guided biopsy of the right breast palpable Mass. Probable resection of the right breast palpable mass in the operating room Follow-up after ultrasound-guided core biopsy right breast lesion Bilateral breast ultrasound in 6 months CC: Dr. Lamas
== END ==
LOC: WWCWWP 13:09
PROVIDERS: ATTEND Surgery
DX: Z80.0 Family history of malignant neoplasm of digestive organs (principal); K21.9 Gastro-esophageal reflux disease without esophagitis; J45.909 Unspecified asthma, uncomplicated; F41.9 Anxiety disorder, unspecified; F32.A Depression, unspecified; F90.9 Attention-deficit hyperactivity disorder, unspecified type; F17.290 Nicotine dependence, other tobacco product, uncomplicated; Z80.41 Family history of malignant neoplasm of ovary

== ENCOUNTER → 2023-05-01 | Day surgery (SDC) | payer OTHER ==
--- NOTE | 2023-05-06 12:02 | USB ---
Pathology Description: Location: 3 o'clock. Marker Left Behind. Needle Type: Mammotome Cores: 4 Skin Nicks: 1 Gauge: 13 The procedure of ultrasound guided core biopsy was explained to the patient. Benefits, alternatives, and risks were discussed. An informed consent was then obtained. A timeout was performed. The patient was placed in supine positioning for imaging and for the procedure. The overlying skin was prepped and draped in usual sterile fashion. Lidocaine was used as anesthetic into the skin and subcutaneous tissue up to area of concern in the right breast. A small skin rocio was made with surgical scalpel. Under ultrasound guidance, a 12-gauge vacuum assisted biopsy gun device was used to obtain 4 core samples. A biopsy clip was left in lesion. T4 butterfly marker was placed The patient tolerated the procedure well without any immediate complication. The patient was kept in the radiology department for short stay after the procedure and then discharged home in stable condition. Postprocedure mammogram: Given the patient's age and residual density evident by ultrasound, mammogram was not performed at this time. Impression: Successful ultrasound guided core biopsy of area of concern in the breast, full pathology results to follow. Recommendations: 1. Recommendations are pending pathology results. Pathology Results: Result: Benign, Fibroadenoma. RIGHT BREAST, 3:00 POSITION, ULTRASOUND GUIDED CORE BIOPSY: Benign fibroadenoma. Overall Assessment: Benign Management: Diagnostic Mammogram of the right breast in 6 months. Electronically signed and approved by: Benji Carlton D.O. Radiologis
== END ==
LOC: RADUSWWP 12:54
PROVIDERS: ATTEND Surgery
DX: D24.1 Benign neoplasm of right breast (principal)
CPT/HCPCS: 88305; 19083; A4648

== ENCOUNTER 2025-04-27 21:59 | Emergency (ER) | payer OTHER ==
[2025-04-27 22:24] VITALS: TEMP 98.3
--- NOTE | 2025-04-27 23:18 | ED ---
Lower Extremity Injury HPI - General Source: patient Mode of arrival: wheelchair Limitations: no limitations <Danni Crowe - Last Filed: 04/27/25 23:18> <Rabia Murrell - Last Filed: 04/29/25 19:13> - General Chief Complaint: Extremity Injury, Lower Stated Complaint: R Foot Injury Time Seen by Provider: 04/27/25 23:18 - History of Present Illness Initial Comments: Quick note: 24-year female presented the ER for evaluation of right foot injury. Patient was lifting a heavy table leg and accidentally dropped it on her right foot. She is endorsing most pain to first metatarsal. She states he is unable bear weight given pain. Denies any paresthesias. (Danni Crwoe) Patient is a 24 y/o female presenting today for right foot injury. Pt states she dropped a stack of wood on her foot and started experiencing pain on the top of her foot. Initially was able to bear weight but now has pain in the bottom and top of her foot with weight bearing. 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 Denies parasthesias. Denies additional injury. (Rabia Murrell) - Related Data Home Medications Medication Instructions Recorded Confirmed Omeprazole 20 mg PO QAM 03/15/21 06/07/23 busPIRone HCL [Buspar] 7.5 mg PO BID 04/18/23 06/07/23 Fluticasone Propion/Salmeterol 1 inhalation PO BID 04/22/23 06/07/23 [Advair 100-50 Diskus] Allergies Allergy/AdvReac Type Severity Reaction Status Date / Time No Known Allergies Allergy Verified 06/07/23 15:07 Review of Systems ROS Other: All systems not noted in ROS Statement are negative. <Danni Crowe - Last Filed: 04/27/25 23:18> ROS Other: All systems not noted in ROS Statement are negative. <Rabia Murrell - Last Filed: 04/29/25 19:13> ROS Statement: Those systems with pertinent positive or pertinent negative responses have been documented in the HPI. Past Medical History Past Medical History: Asthma, GERD/Reflux Additional Past Medical History / Comment(s): "Born with a heart murmur. Have palpitations related to Asthma". History of Any Multi-Drug Resistant Organisms: None Reported Past Surgical History: Adenoidectomy, Tonsillectomy Additional Past Surgical History / Comment(s): [place] teeth. Past Anesthesia/Blood Transfusion Reactions: No Reported Reaction, Motion Sickness Past Psychological History: ADD/ADHD, Anxiety, Bipolar, Depression Smoking Status: Former smoker, Vaper Past Alcohol Use History: Rare Past Drug Use History: Marijuana - Past Family History Father Family Medical History: No Reported History <Danni Crowe - Last Filed: 04/27/25 23:18> General Exam Limitations: no limitations <Danni Crowe - Last Filed: 04/27/25 23:18> <Rabia Murrell - Last Filed: 04/29/25 19:13> - General Exam Comments Initial Comments: Visual Physical Exam Vital signs reviewed General: Well-appearing, nontoxic, no acute distress. Head: Normocephalic, atraumatic Eyes: PERRLA, EOMI ENT: Airway patent Chest: Nonlabored breathing Skin: No visual rash, normal skin tone Neuro: Alert and oriented 3 Musculoskeletal: No gross abnormalities (Danni Crowe) Vital signs reviewed General: Well-appearing, nontoxic, no acute distress. Head: Normocephalic, atraumatic Eyes: PERRLA, EOMI ENT: Airway patent Chest: Nonlabored breathing Skin: No visual rash, normal skin tone Neuro: Alert and oriented 3 Musculoskeletal: distal RLE and ankle are atraumatic without bony TTP, small light purple bruising to dorsal aspect right foot with point TTP, no bruising to plantar aspect of foot, pt able to plantar flex fully, some pain with dorsiflexion, able to marielena and invert ankle and wiggles toes, 2+ DP pulse palpated, sensation to light touch intact througout, no gross deformity (Rabia Murrell) Course Vital Signs 04/27/25 04/28/25 22:21 01:37 Temperature 98.3 F 98.3 F Pulse Rate 104 H 93 Respiratory 18 16 Rate Blood Pressure 142/81 131/81 O2 Sat by Pulse 99 97 Oximetry Medical Decision Making <Danni Crowe - Last Filed: 04/27/25 23:18> <Rabia Murrell - Last Filed: 04/29/25 19:13> - Medical Decision Making I performed the quick note portion of this chart. Electronically signed by Danni Crowe PA-C (Danni Crowe) Was pt. sent in by a medical professional or institution (SUSHIL Dai, EYELET MACHINE OPERATOR, urgent care, hospital, or usp...) When possible be specific @ -No Did you speak to anyone other than the patient for history (EMS, parent, family, police, friend...)? What history was obtained from this source @ -No Did you review nursing and triage notes (agree or disagree)? Why? @ -I reviewed nursing and triage notes Differential Diagnosis (chest pain, altered mental status, abdominal pain women, abdominal pain men, vaginal bleeding, weakness, fever, dyspnea, syncope, headache, dizziness, GI bleed, back pain, seizure, CVA, palpatations, mental health, musculoskeletal)? Differential Musculoskeletal Muscular strain, contusion, ligament sprain, fracture, arthritis, septic arthritis, bursitis, cellulitis, muscle spasm, nerve compression, DVT, arterial occlusion, herpes zoster, electrolyte abnormality, tumor.... This is not meant to be in all inclusive list EKG interpreted by me (3pts min.). @ -As above X-rays interpreted by me (1pt min.). Personally reviewed foot and ankle x-rays, some evidence of fracture or dislocation I agree with radiologist interpretation CT interpreted by me (1pt min.). @ -None done U/S interpreted by me (1pt. min.). @ -None done What testing was considered but not performed or refused? (CT, X-rays, U/S, lab s)? Why? @ -None What meds were considered but not given or refused? Why? @ -None Did you discuss the management of the patient with other professionals (professionals i.e. SUSHIL Dai, EYELET MACHINE OPERATOR, lab, RT, psych nurse, psych social worker, manpower development specialist manager, teacher, wildlife conservation officer, field case manager)? Give summary @ -No Was smoking cessation discussed for >3mins.? @ -No Was critical care preformed (if so, how long)? @ -No Were there social determinants of health that impacted care today? How? (Homelessness, low income, unemployed, alcoholism, drug addiction, transportation, low edu. Level, literacy, decrease access to med. care, fdc, rehab)? @ -No Was there de-escalation of care discussed even if they declined (Discuss DNR or withdrawal of care, Hospice)? @ -No What co-morbidities impacted this encounter? (DM, HTN, Smoking, COPD, CAD, Cancer, CVA, ARF, Chemo, Hep., AIDS, mental health diagnosis, sleep apnea, morbid obesity)? @ -None Was patient admitted / discharged? Hospital course, mention meds given and route, prescriptions, significant lab abnormalities, going to OR and other pertinent info. @Discharged-patient is a 24-year-old female presenting for right foot injury. Of note patient was seen by triage provider prior to my assessment and x-rays were ordered and completed prior to my assessment. Reviewed patient's x-rays and I see no evidence of fracture or dislocation, they were read as negative for acute process. Seen by myself in the waiting room, due to ED at overflow capacity due to multiple boarding patients in the emergency department. I obtained patient's permission to perform physical exam and evaluation and waiting room to which she was agreeable. Exam notable for small bruise and tenderness palpation of the dorsal aspect of the right foot without gross deformity or significant swelling. Foot is neurovascularly intact. Discussed with patient imaging findings, she will be provided with a hard sole shoe/walking boot to help with pain and support. Orderd toradol and tylenol-3 fo r pain control. Discussed with pt the importance of icing and elevating her foot and using NSAIDS as needed for pain control. We discussed signs ands symptoms to monitor for warranting return to the ED and plan for discharge. Pt agreeable w/ POC. Pt discharged in stable condition. In my medical judgment there is currently no evidence of an immediate life- threatening or surgical condition. Discharge is therefore indicated at this time. Discharge treatment instructions, follow up instructions, and appropriate emergency department return precautions were discussed with the patient and/or medical decision maker. Patient and/or medical decision maker expressed understanding of and agreed with the treatment plan, follow up instructions, and emergency department return precaution. All patient's and/or medical decision maker's questions were answered. The patient was advised that a small risk still exists that a serious condition could develop and was therefore instructed to return to the ED for any changes in symptoms, persistent symptoms, inability to obtain proper follow-up or for any further concerns. Patient received verbal and written instructions for this condition. Undiagnosed new problem with uncertain prognosis? @ -No Drug Therapy requiring intensive monitoring for toxicity (Heparin, Nitro, Insulin, Cardizem)? @ -No Were any procedures done? @ -No Diagnosis/symptom? @Foot contusion Acute, or Chronic, or Acute on Chronic? @Acute Uncomplicated (without systemic symptoms) or Complicated (systemic symptoms)? @Uncomplicated Side effects of treatment? @ -No Exacerbation, Progression, or Severe Exacerbation? @ -No Poses a threat to life or bodily function? How? (Chest pain, [place], [place], pneumonia, PE, COPD, DKA, ARF, appy, cholecystitis, CVA, Diverticulitis, Homicidal, S uicidal, threat to staff... and all critical care pts) @ -No (Rabia Murrell) Disposition <Danni Crowe - Last Filed: 04/27/25 23:18> Is patient prescribed a controlled substance at d/c from ED?: No <Rabia Murrell - Last Filed: 04/29/25 19:13> Clinical Impression: Contusion of right foot Disposition: HOME SELF-CARE Condition: Good Instructions (If sedation given, give patient instructions): Foot Contusion (ED) Additional Instructions: Note every disease is a spectrum and a small chance still exists that a serious condition could develop, for this reason, please monitor yourself closely for new, changing or worsening symptoms, symptoms that do not improve in the next 48 to 72 hours with provided pain control instructions, numbness, worsening swelling, fever, inability to tolerate/keep down fluids or your medications, inability to follow up with outpatient providers as instructed and should you experience these symptoms or should you have any further concerns for your wellbeing please return to the ED or call 911 immediately. Your pain can be treated with ibuprofen and acetaminophen. You can take up to 400-600 mg of ibuprofen (Advil, Motrin) 3 times daily (every 8 hours) but can also use lower doses if this relieves your pain. Some people prefer naproxen (Aleve, Naprosyn) which can be taken in doses of 500 mg up to twice a day. Do not take both of these medicines together, and do not combine either with ketorolac (Toradol), meloxicam (Mobic), or indomethacin (Tivorbex). Some people can develop stomach discomfort with higher doses of either ibuprofen or naproxen, if this develops decrease your dose or stop taking it. If you need to take this dose daily for more than a week, please schedule an appointment for re-evaluation with your PCP. Please take these medications with food. You can take up to 1000 mg of acetaminophen (Tylenol) every 6 hours. Be careful as this is included in some medicines like Nyquil, [place], Percocet, Vicodin, STANBACK, Goody's Powders, and Excedrin. Please ice and elevate your affected extremity for 20 minutes every 3-4 hours. You can also use lidocaine patches for topical pain. You can purchase 4% patches over the counter at most drug stores. These can be helpful for pain from your muscles or bones. PLEASE call your primary care physician as soon as possible to arrange / discuss plan for followup appointment. Appointment in the next 1-3 days is strongly encouraged if possible. PLEASE let us know here before you leave if there is anything further we can do to be of any assistance. Take care and feel Better! Referrals: Benji Lamas, DO [Primary Care Provider] - 1-2 days
--- NOTE | 2025-04-28 00:52 | XR ---
EXAM: XR Right Ankle Complete, 3 or More Views CLINICAL HISTORY: ITS.REASON XR Reason: pain TECHNIQUE: Frontal, lateral and oblique views of the right ankle. COMPARISON: No relevant prior studies available. FINDINGS: Bones/joints: Unremarkable. No acute fracture. No dislocation. Soft tissues: Unremarkable. IMPRESSION: Normal right ankle x-rays.
--- NOTE | 2025-04-28 00:52 | XR ---
EXAM: XR Right Foot Complete, 3 or More Views CLINICAL HISTORY: ITS.REASON XR Reason: pain TECHNIQUE: Frontal, lateral and oblique views of the right foot. COMPARISON: No relevant prior studies available. FINDINGS: Bones/joints: Unremarkable. No acute fracture. No dislocation. Soft tissues: Unremarkable. No radiopaque foreign body. IMPRESSION: Normal right foot x-rays.
[2025-04-28] MEDS: Acetaminophen-Codeine 300-30mg TAB PO STA (01:33)
[2025-04-28] MEDS: KETOROLAC 15 MG/ML 1 ML VIAL IM STA (01:34)
[2025-04-28 01:38] VITALS: BP 131/81; PULSE 93; RESP 16
== END 2025-04-28 01:42 | disposition home or self-care (01) ==
LOC: EC 21:59
DX: S90.31XA Contusion of right foot, initial encounter (principal); F17.290 Nicotine dependence, other tobacco product, uncomplicated; W20.8XXA Other cause of strike by thrown, projected or falling object, initial encounter
CPT/HCPCS: 73610; 73630; 99283; 96372; J1885